=== PATIENT | female | born 1955 | race Caucasian/White ===

== ENCOUNTER 2025-01-20 11:22 | Outpatient (RCR) | payer MEDICARE, SELFPAY ==
[2025-01-20 12:13] LABS: Creatinine* 0.6 mg/dL (0.5-1.5); Est. Creatinine Clearance* 52.81; Estimated Glomerular Filt Rate 97 ml/min
--- NOTE | 2025-02-14 13:52 | ONC.NURNOTE ---
Dx: Pancreatic cancer
== END 2025-07-19 23:59 | disposition home or self-care (01) ==
LOC: CCIC 11:22
PROVIDERS: Visit Provider Physician Assistant
DX: C25.0 Malignant neoplasm of head of pancreas (principal)
CPT/HCPCS: 36415; 36591; 82565